=== PATIENT | male | born 1995 | race Caucasian/White ===

== ENCOUNTER 2022-05-27 23:02 | Emergency (ER) | payer BC ==
--- OUTSIDE RECORDS SUMMARY | 2022-05-27 23:05 | XMS REPORT | Continuity of Care Document ---
:1995 Author Organization [facility] t Address [address] [place] [address] Care Team Providers Name Role Phone Pcp, Does Not Have A Primary Care Physician Javier FOOD SAF[employer]Y OFFICER Attending Clinician JAVIER Attending Clinician Unavailable Doctor Unassigned, Name Attending Clinician Unavailable Thierry CAMPBELL, Brenda Attending Clinician Payers Payer Name Policy Type Policy Number Effective Date Expiration Date S ource Problems Condition Condition Condition Status Onset Resolution Last Treating Co mments Source Name Details Category Date Date Treatment Clinician Date No known No known Disease Unive rs active active ity of problems problems [facility] Allergies, Adverse Reactions, Alerts Allergy Allergy Status Severity Reaction(s) Onset Inactive Treating Comm ents Source Name Type Date Date Clinician AMOXICIL DRUG Active Unknown-Cmnt Un michelle MENDOSA INGREDI 1- ity of 00:00: [place] 00 Medical Branch Amoxicil Propensi Active Unknown - Patient Un michelle mendosa ty to See comments 11-29 does not it y of adverse 00:00: know. [place] reaction 00 Said it Medical s was when Branch he was a baby. Amoxicil Propensi Active Childhood 2020-11 Guru aki mendosa ty to Reaction 0-08 Seybold adverse 00:00: reaction 00 s NO KNOWN Drug Active Univers ALLERGIE Class ity of S [facility] Social History Social Habit Start Date Stop Date Quantity Comments Source Exposure to Not sure [facility] SARS-CoV-2 (event) Medica l Branch Sex Assigned At [birth year] [facility] [place] [facility]:00:00 Medical Branch Smoking Status Start Date Stop Date Source [facility] Never smoked tobacco Juana Seyb old Medications Ordered Filled Start Stop Current Ordering Indication Dosage Frequency Signature Comments Components Source Medication Medication Date Date Medication? Clinician (SIG) Name Name sulfamethox 2021- No [id number] 1{tbl} Take 1 Univers azole-trime 11-29 tablet by it y of oprim 00:00: 05:59 mouth 2 [place] (BACTRIM 00 :00 (two) Medical DS) 800-160 times Branch mg per daily for tablet 7 days. Sertraline 2020-11 Yes [id number] 50mg Take 1 K elsey HCl 50 MG 0-08 tablet (50 Seyb old oral Tablet 00:00: mg total) 00 by mouth daily Sertraline Yes 50mg Take 50 mg K elsey HCl 50 MG 9-11 by mouth Seybol d oral Tablet 00:00: daily Take 00 Zoloft 50 mg orally once daily Immunizations Ordered Immunization Filled Immunization Date Status Commen ts Source Name Name Influenza Virus 2021-08-09 Completed Juana wongold Vaccine, age 6 00:00:00 months and up Vital Signs Vital Name Observation Time Observation Value Comments Source Systolic blood 2021-11-29 19:06:00 116 mm[Hg] Univer [facility] Diastolic blood 2021-11-29 19:06:00 74 mm[Hg] [facility] Heart rate 2021-11-29 19:06:00 83 /min [facility] Body temperature 2021-11-29 19:06:00 36.44 Vandana [facility] Respiratory rate 2021-11-29 19:06:00 18 /min [facility] Body height 2021-11-29 19:06:00 182.9 cm [facility] Body weight 2021-11-29 19:06:00 90.447 kg [facility] BMI 2021-11-29 19:06:00 27.04 kg/m2 [facility] Oxygen saturation in 2021-11-29 19:06:00 97 /min [facility] blood by [facility] Pulse oximetry Branch Diastolic blood 2021-08-09 21:37:00 68 mm[Hg] Kelse y Seybold pressure Heart rate 2021-08-09 21:37:00 77 /min Juana vasquez Body temperature 2021-08-09 21:37:00 37.11 Vandana Mariama flores Seybold Respiratory rate 2021-08-09 21:37:00 20 /min Mariama flores Seybold Body height 2021-08-09 21:37:00 182.9 cm Juana vasquez Body weight 2021-08-09 21:37:00 92.08 kg Juana vasquez BMI 2021-08-09 21:37:00 27.53 kg/m2 Juana vasquez Oxygen saturation in 2021-08-09 21:37:00 98 /min Juana Yee Arterial blood by Pulse oximetry Systolic blood 2021-08-09 21:37:00 106 mm[Hg] Juana Biswasybold pressure Procedures Procedure Date / Time Performed Performing Clinician [facility] ASSIGNMENT OF BENEFITS 2021-11-29 19:02:24 Doctor Unassigned, [facility] Encounters Start End Encounter Admission Attending Care Care Encounter Source Date/Time Date/Time Type Type Clinicians Facility Department ID 2021-11-29 2021-11-29 [facility] [id number] Univers 13:00:00 13:20:00 Care [facility] [id number] it y of [place] [id number] Joss as FIDE?BLEA [phone] [address] MEDICAL OFFICE BUILDING 2021-11-29 2021-11-29 Outpatient R JAVIER [facility] [id number] Univers 13:00:00 13:00:00 AVA ity [facility] 2021-11-29 2021-11-29 Letter Doctor WALDROP [id number] Univers 00:00:00 00:00:00 (Out) ElizassNAEEM rainey [id number] ity [facility] [id number] Joss as [phone] [address] 2021-11-29 2021-11-29 Letter Doctor WALDROP [id number] Univers 00:00:00 00:00:00 (Out) Unassigned, NAEEM [id number] ity of [facility] [id number] Joss as [phone] [facility] 044 Branch 2021-11-29 2021-11-29 Orders Doctor BENJIE [id number] Univers 00:00:00 00:00:00 Only Unassigned, NAEEM [id number] ity of [facility] [id number] Joss as [phone] [facility] 009 Branch 2021-08-09 2021-08-09 Office Erlin Guadarrama [id number] Ju[place] 16:32:09 17:02:09 Visit Zoë Freire [id number] Se marvinalexandru Brenda [id number] Results This patient has no known results.
[2022-05-28] MEDS ORDERED: LIDOCAINE 1% W/EPI 1:100,000 MDV 50 ML VIAL ONE (01:11)
[2022-05-28] MEDS ORDERED: NA CHLORIDE 0.9% 100 ML ONE (02:17)
--- NOTE | 2022-05-28 02:42 | ER ---
Nurse's Notes [facility] Name: Redd Antoine Age: 27 yrs Sex: Male : 1995 Arrival Date: 05/27/2022 Time: 23:05 Bed 12 Private MD: Diagnosis: Pilonidal cyst with abscess Presentation: 05/27 23:21 Chief complaint: Abscess on coccyx x 2 days. Coronavirus screen: At this time, the client does not indicate any symptoms associated with coronavirus-19. Ebola Screen: No symptoms or risks identified at this time. Risk Assessment: Do you want to hurt yourself or someone else? Patient reports no desire to harm self or others. Onset of symptoms was May 26, 2022. 23:21 Method Of Arrival: Ambulatory 23:21 Acuity: JUSTINE 4 05/28 03:01 Initial Sepsis Screen: Does the patient meet any 2 criteria? No. Patient's initial [facility] sepsis screen is negative. Does the patient have a suspected source of infection? No. Patient's initial sepsis screen is negative. Triage Assessment: 03:01 General: Appears in no apparent distress. Behavior is calm, cooperative, appropriate [facility] for age. Historical: - Allergies: 05/27 23:22 Amoxicillin; hb - PMHx: 23:22 None; hb - PSHx: 23:22 None; - Immunization history:: Adult Immunizations up to date. - Social history:: Smoking status: Patient denies any tobacco usage or history of. Screenin/27 00:11 Abuse screen: Denies threats or abuse. Nutritional screening: No deficits noted. [facility] Tuberculosis screening: No symptoms or risk factors identified. Fall Risk None identified. Assessment: 00:11 Pain: Complains of pain in buttocks. [facility] Vital Signs: 05/27 23:21 BP 120 / 81; Pulse 88; Resp 16; Temp 98.1; Pulse Ox 100% on R/A; Weight 90.72 kg; hb Height 6 ft. (182.88 cm); Pain 9/10; 05/28 01:24 BP 118 / 76; Pulse 78; Resp 20; Pulse Ox 100% on R/A; 1 03:00 BP 122 / 68; Pulse 68; Resp 20; Pulse Ox 100% on R/A; [facility] 05/27 23:21 Body Mass Index 27.12 (90.72 kg, 182.88 cm) ED Course: 05/27 23:05 Patient arrived in ED. [facility] 23:22 Triage completed. 23:22 Arm band placed on. 05/28 00:11 Jessie Dyer, RN is Primary Nurse. bh1 00:11 No apparent distress. Resting quietly. Awaiting ED provider evaluation. bh1 00:11 Patient has correct armband on for positive identification. bh1 00:11 No provider procedures requiring assistance completed. Patient did not have IV access bh1 during this emergency room visit. 00:27 Humberto Mg MD is Attending Physician. kdr 01:25 Awaiting disposition. 1 02:23 Wound care: was dressed with 4X4s. 1 Administered Medications: No medications were administered Medication: 00:11 VIS not applicable for this client. [facility] Outcome: 02:41 Discharge ordered by . kdr 03:01 Discharged to home ambulatory. 1 03:01 Condition: good 03:01 Discharge instructions given to patient, Instructed on discharge instructions, follow up and referral plans. medication usage, Demonstrated understanding of instructions, follow-up care, medications. 03:01 Patient left the ED. [facility] Signatures: Humberto Mg MD MD kdr Niki Marquez RN RN Maru Lomax [facility] Jessie Dyer, BALAJI RN [facility] Corrections: (The following items were deleted from the chart) 05/27 23:22 23:22 Allergies: No Known Allergies; [facility]
--- NOTE | 2022-05-28 02:42 | EDPHYS ---
Physician Documentation [facility] Name: Redd Antoine Age: 27 yrs Sex: Male : 1995 Arrival Date: 05/27/2022 Time: 23:05 Bed 12 Private MD: ED Physician Humberto Mg HPI: 05/28 22:47 This 27 yrs old Male presents to ER via Ambulatory with complaints of Cyst, InQuicker kdr 2300. 22:47 Patient complains of pain to his buttock/coccyx area. This is happened several times kdr before and once he had a spontaneously draining abscess around.. Onset: The symptoms/episode began/occurred gradually, 2 day(s) ago. Severity of symptoms: At their worst the symptoms were mild moderate just prior to arrival, in the emergency department the symptoms are unchanged. The patient has experienced similar episodes in the past, a few times. The patient has not recently seen a physician. Historical: - Allergies: 05/27 23:22 Amoxicillin; hb - PMHx: 23:22 None; hb - PSHx: 23:22 None; hb - Immunization history:: Adult Immunizations up to date. - Social history:: Smoking status: Patient denies any tobacco usage or history of. ROS: 05/28 22:47 Constitutional: Negative for fever, chills, and weight loss, Eyes: Negative for injury, kdr pain, redness, and discharge. Back: Positive for pain at rest, pain with movement, of the sacrum. Exam: 22:47 Constitutional: This is a well developed, well nourished patient who is awake, alert, kdr and in no acute distress. Head/Face: Normocephalic, atraumatic. 22:47 Skin: abscess, that is moderate sized, of the coccyx, with induration. Vital Signs: 05/27 23:21 BP 120 / 81; Pulse 88; Resp 16; Temp 98.1; Pulse Ox 100% on R/A; Weight 90.72 kg; hb Height 6 ft. (182.88 cm); Pain 9/10; 05/28 01:24 BP 118 / 76; Pulse 78; Resp 20; Pulse Ox 100% on R/A; bh1 03:00 BP 122 / 68; Pulse 68; Resp 20; Pulse Ox 100% on R/A; bh1 05/27 23:21 Body Mass Index 27.12 (90.72 kg, 182.88 cm) hb Procedures: 22:47 I \T\ D: Incision and drainage was performed for an abscess of the pilonidal cyst Prepped kdr with Betadine, Anesthetized with 5 ml's 1% Lidocaine w/ Epi. Incised with #11 blade. Drained large amount purulent fluid. Loculations removed. Abscess cavity explored. Packed with iodoform gauze, Dressing: sterile 4x4 gauze, non-Adherent dressing, the patient tolerated the procedure well. MDM: 02:41 Patient medically screened. kdr 22:47 Data reviewed: vital signs, nurses notes. Counseling: I had a detailed discussion with kdr the patient and/or guardian regarding: the historical points, exam findings, and any diagnostic results supporting the discharge/admit diagnosis, the need for outpatient follow up. Administered Medications: No medications were administered Disposition Summary: 05/28/22 02:41 Discharge Ordered Location: Home kdr Problem: an acute exacerbation kdr Symptoms: have improved kdr Condition: Stable kdr Diagnosis - Pilonidal cyst with abscess kdr Followup: kdr - With: Private Physician - When: 2 - 3 days - Reason: If symptoms return, Further diagnostic work-up, Recheck today's complaints, Continuance of care, Re-evaluation by your physician Discharge Instructions: - Discharge Summary Sheet kdr - Pilonidal Cyst kdr - Pilonidal Cyst Drainage, Care After kdr Forms: - Medication Reconciliation Form kdr - Thank You Letter kdr - Antibiotic Education kdr - Prescription Opioid Use kdr Prescriptions: - Cipro 500 mg Oral Tablet - take 1 tablet by ORAL route one time for 1 day; 1 tablet; Refills: 0, Product kdr Selection Permitted - Tylenol-Codeine #3 300 mg-30 mg Oral - take 1 tablet by ORAL route 2 times per day; 20 tablet; Refills: 0, Product kdr Selection Permitted Signatures: Humberto Mg MD MD [facility] Niki Marquez RN RN Jessie Dyer RN RN [facility] Corrections: (The following items were deleted from the chart) 05/27 23:22 23:22 Allergies: No Known Allergies; hb
[2022-05-28 11:05] VITALS: TEMP 98.1; O2SAT 100
[2022-05-28 11:12] VITALS: BP 122/68
== END 2022-05-28 03:01 | disposition home or self-care (01) ==
LOC: ER 23:02
PROC: 0H98XZZ Drainage of Buttock Skin, External Approach (ICD-10-PCS; principal; 2022-05-27)
DX: L05.01 Pilonidal cyst with abscess (principal); Z88.1 Allergy status to other antibiotic agents

== ENCOUNTER 2025-02-24 11:09 | Day surgery (SDC) | payer BC ==
[2025-02-24] MEDS: Ringers Lactate 1,000 ML IV ONE (11:40)
[2025-02-24] MEDS ORDERED: propofoL 200 MG/20 ML VIAL IV ONE (11:51)
[2025-02-24] MEDS ORDERED: LIDOCAINE 2% MPF 5 ML VIAL ONE (11:51)
[2025-02-24] MEDS ORDERED: METHYLENE BLUE 1% 10 ML VIAL ONE (11:51)
[2025-02-24] MEDS ORDERED: ROCURONIUM 50 MG/5 ML VIAL IV ONE (11:51)
[2025-02-24] MEDS ORDERED: FENTANYL CITR 100 MCG/2 ML ONE (11:51)
[2025-02-24] MEDS ORDERED: MIDAZOLAM HCL 2 MG/2 ML INJ ONE (11:51)
[2025-02-24] MEDS ORDERED: ONDANSETRON 4 MG/2 ML VIAL ONE ×2 (11:53→14:00)
[2025-02-24] MEDS: CEFTRIAXONE 1000 MG/VIAL ONE (13:37)
[2025-02-24] MEDS: LIDOCAINE HCL/EPINEPHRINE 20 ML MDV ONE (13:48)
[2025-02-24] MEDS ORDERED: dexAMETHasone 4 MG/ML VIAL ONE (14:00)
[2025-02-24] MEDS ORDERED: KETOROLAC 30 MG/ML INJ ONE (14:00)
[2025-02-24] MEDS ORDERED: NEOSTIGMINE 1 MG/ML -10 ML VIAL ONE (14:06)
[2025-02-24] MEDS ORDERED: GLYCOPYRROLATE 0.2 MG/ML SYR ONE (14:06)
--- NOTE | 2025-02-24 14:07 | P.OP ---
Preoperative diagnosis: Recurrent Pilodial Cyst Postoperative diagnosis: Recurrent Pilodial Cyst Primary procedure: Wide Exicison of Pilonidal Cyst Secondary procedure: Application of Kerecis Graft Tissue Anesthesia: GETA Local Estimated blood loss: <5cc Specimen: Debridement Tissue: Findings: 8cm x 5cm Pilonidal Cyst Complications: None Implants: Kerecis 19units Fish Graft Transferred to: Recovery Room Condition: Good
[2025-02-24 16:03] VITALS: BP 116/79; TEMP 97
[2025-02-24 16:04] VITALS: O2SAT 97
--- NOTE | 2025-02-24 23:30 | OP ---
Date of Procedure: 02/24/2025 Surgeon: Jeovany Tompkins MD, Preoperative Diagnosis: Recurrent pilonidal cyst. Postoperative Diagnosis: Recurrent pilonidal cyst. Procedures Performed: 1. Wide local excision of recurrent pilonidal cyst. 2. Application of Kerecis fish graft tissue. Anesthesia: General endotracheal plus local with 0.25% Marcaine with epinephrine. Estimated Blood Loss: Less than 5 cc. Specimens: Debridement tissue. Findings: Approximately 8 cm x 5 cm pilonidal cyst, infected area. Complications: None. Implants: Kerecis 19-unit fish graft placed. Disposition: The patient was transferred to recovery room in good condition. Brief History And Present Illness: The patient is a 29-year-old male, known to me from previous enco unters, who had a pilonidal cyst before in the past, which improved significantly. It is essentially almost completely healed out, at which point, he noticed some hair follicles that gotten deposited b ack in that area and his had pulled out long hair follicles from superior to his previous wound and inferior to his previous wound. He developed pain, drainage, and findings consistent with a recu rrent pilonidal cyst. As such, he came to the office with the above-stated complaints. Therefore, h e was deemed appropriate for operative intervention. Procedure In Detail: After informed consent was obtained, the patient was brought to the operating r oom, prepped and draped in the usual sterile fashion. After adequate anesthesia was achieved, I made an elliptical incision circumferentially around the area superior to the cleft down 38 cm x 5 cm and the fascial overlying the sacrum. This was all nonviable and I scratched at all affected tiss ues and were removed at this point. I then used electrocautery to achieve hemostasis with minimal el ectrocautery. The area was copiously irrigated. I then applied 19 units of Kerecis fish graft into the wound bed and placed an Adaptic and sterile gauze over the top. The patient tolerated the proced ure well without incident or complication and transferred to PACU in good condition. All counts were correct at the end of the case. JACINDA/COURTNEY Voice ID: [id number] Report ID: [id number]
== END 2025-02-24 16:00 | disposition home or self-care (01) ==
LOC: OR 11:09
PROVIDERS: ATTEND Surgery
PROC: XHRPXF7 Replacement of Skin with Bioengineered Allogeneic Construct, External Approach, New Technology Group 7 (ICD-10-PCS; 2025-02-24)
PROC: 0JB90ZZ Excision of Buttock Subcutaneous Tissue and Fascia, Open Approach (ICD-10-PCS; principal; 2025-02-24 14:00)
DX: L05.01 Pilonidal cyst with abscess (principal)
CPT/HCPCS: 88304; 11770; 15271; J2704; J1100; J2710; J2003; J2250; J3010; J2405 ×2; J7120; J0696; Q4158